=== PATIENT | female | born 1990 | race Caucasian/White ===

== ENCOUNTER → 2017-09-05 15:58 | Outpatient (CLI) | payer OTHER, SELFPAY ==
[2017-09-05 17:38] LABS: Hematocrit 31.8 % (37-47); Mean Corp Hgb Conc 34.6 g/gl (32-36); Mean Corpuscular Hgb 31.5 pg (27.0-32.0); Mean Corpuscular Volume 91.1 fL (81-99); Mean Platelet Vol. 10.4 fl (6.2-12.0); Platelet Count 200 K/mm3 (150-450); RBC Distribution Width CV 11.3 % (11.6-14.6); RBC Distribution Width SD 36.2 fl (35.1-43.9); Red Blood Count 3.49 M/mm3 (4.2-5.4); White Blood Count 8.1 K/mm3 (4.4-11.0)
[2017-09-05 17:39] LABS: Scan Indicated on CBC? Y/N NO
[2017-09-05 17:45] LABS: Glucose Challenge Gest 1H 50g 78 mg/dL (70-140)
== END ==
PROVIDERS: Visit Provider Obstetrics & Gynecology
DX: Z34.83 Encounter for supervision of other normal pregnancy, third trimester (principal)
CPT/HCPCS: 82950; 85027; 86850

== ENCOUNTER → 2017-10-31 13:30 | Outpatient (CLI) | payer OTHER, SELFPAY ==
[2017-10-31 15:23] LABS: Group B Strep DNA By PCR Negative (Negative); Internal Control PASS; Probe Check PASS; Specimen Processing Control PASS
== END ==
PROVIDERS: Visit Provider Obstetrics & Gynecology
DX: Z36.85 Encounter for antenatal screening for Streptococcus B (principal)
CPT/HCPCS: 87081; 87653

== ENCOUNTER 2017-11-26 01:20 | Inpatient (IN) | payer OTHER, SELFPAY ==
[2017-11-26 01:53] VITALS: BMI 24.1
[2017-11-26] MEDS: Lactated Ringers 1,000 ML 50 ML IV ×3 (02:00→05:18)
[2017-11-26 02:14] LABS: Hematocrit 36.6 % (37-47); Hemoglobin 12.1 g/dl (12.0-15.0); Mean Corp Hgb Conc 33.1 g/gl (32-36); Mean Corpuscular Hgb 27.4 pg (27.0-32.0); Mean Platelet Vol. 10.5 fl (6.2-12.0); Platelet Count 243 K/mm3 (150-450); RBC Distribution Width CV 13.6 % (11.6-14.6); Red Blood Count 4.41 M/mm3 (4.2-5.4); Scan Indicated on CBC? Y/N NO; White Blood Count 12.9 K/mm3 (4.4-11.0)
[2017-11-26] MEDS: fentaNYL-bupivacaine (epidural) 100 ML BAG EPIDURAL ×2 (03:15→08:00)
--- NOTE | 2017-11-26 07:05 | PCM.PN.OB ---
Subjective: Comfortable with epidural in place. Objective: Afeb VSS FHR tracing Cat 1. - Physical Exam General: Alert, Oriented x3, Cooperative, No apparent distress Lungs: Clear to auscultation, Normal air movement Cardiovascular: Regular rate, Regular Rhythm Abdomen: Non Tender, Gravid, Appropriate for Gestational Age Extremities: No edema, No Calf Tenderness Skin: No rashes Psych/Mental Status: Normal Affect Comment: CE 8cm/90/0 Weight: 159 lb Body Mass Index (BMI) 24.1 Intake and Output for Last 24 Hours 11/24/17 11/25/17 11/26/17 23:59 23:59 23:59 Output Total 200 / 200 Balance -200 / -200 Laboratory Tests Past 24 Hrs 11/26/17 11/26/17 11/26/17 02:00 02:00 02:00 WBC 12.9 H RBC 4.41 Hgb 12.1 Hct 36.6 L MCV 83.0 MCH 27.4 MCHC 33.1 RDW 13.6 RDW Differential 41.0 Plt Count 243 MPV 10.5 Blood Type B NEGATIVE Antibody Screen TNP NEGATIVE Medical Necessity - Tobacco Use Smoking Status: Never smoker Assessment/Plan All Active Problems (Last Reviewed 04/20/17 @ 15:53 by Lulu Onofre) UTI (urinary tract infection) in in first trimester (Acute) Need for rhogam due to Rh negative mother (Acute) Supervision of normal (Acute) Progressing in labor. AROM performed with clear fluid noted. IUPC placed. Expect to be pushing soon.
[2017-11-26] MEDS: Oxytocin 30 units/NS 500 ml 30 UNITS/500 ML IV.SOLN 334 UNITS IV (08:41)
[2017-11-26] MEDS: Oxytocin 30 units/NS 500 ml 30 UNITS/500 ML IV.SOLN 167 UNITS IV (09:11)
--- NOTE | 2017-11-26 10:12 | PCM.OB.VAG ---
Vaginal Delivery Maternal Presentation: Active Labor 40w3d ega in active labor Amniotic Membrane Rupture Type: Artificial Rupture of Membrane time: 0650 Amniotic Fluid Description: Clear Final PIA: 11/23/17 Final PIA Source: US <20 weeks Gestational age: 40 Weeks and 3 Days Date of Procedure: 11/26/17 Pre-Operative Diagnosis: Labor Post-Operative Diagnosis: same Surgery/ Procedure Performed: Spontaneous Vaginal Delivery Anesthesiologist: Bowen Salas Type of Anesthesia: Epidural Description of Procedure: Progressed to FD from 4 cm over 6 hours. Pushed over the course of four contractions to deliver a live male without complication. There was a tight nuchal cord which was not able to be reduced prior to delivery but did not hamper delivery of the shoulders. Delayed cord clamping was employed. Cord bloods were collected. The placenta was delivered spontaeously intact with an excentrically located 3VC. Inspection revealed an intact cervix and upper vagina. A second degree posterior vaginal/perineal tear was repaired with 2-0 Vicryl. The uterus contracted well after delivery. Presentation: Vertex Placental Delivery Description: Spontaneous Placenta Disposition: [facility] Percentage of Placenta Abruption: 0 Cord Vessel Description: 3 Vessels Nuchal Cord Compression: With compression Cord Entanglement: Around neck x 1, tight Drain: Johnston to straight drain Estimated Blood Loss: 300cc Infant A gender: Male (1 minute): 9 (5 minute): 9 Episiotomy Description: None Laceration: Midline, Vaginal Extension/lac, 2nd degree Medications given after delivery: IV Pitocin Complications: None
--- NOTE | 2017-11-26 10:21 | DCINST_ITS ---
Discharge Diet: No Restrictions Discharge Activity: Return to Normal Activity, May Drive, May Shower Return to work on:: 01/25/18 May shower in (days): 0 May resume sexual activity in: 6 weeks Call your doctor if your incision/area has: Continuous Slow Oozing, Sudden Increased Bleeding, Increased Pain/ Swelling, Increased Redness, Foul Smelling Discharge, Swelling at the incision site Call your doctor if you observe: Fever of 101 or Higher, Inability to urinate, Inability to have a bowel movement, Using more than one pad per hour, Shortness of breath, Chest pain, Calf discomfort, Uncontrolled pain Cleanse incision/area with: Soap & Water Additional Instructions: If you experience any of the following, contact your healthcare provider. * Bleeding that soaks a pad every hour for 2 hours * Fever 100.4 or higher * Unrelieved incision or abdominal pain * Swelling, redness, discharge or bleeding from your incision or episiotomy site * Your incision begins to separate * Problems urinating (including inability to urinate or burning while urinating) . * Visual changes * Severe headache * Flu-like symptoms * Pain or redness in one of both of your breasts * Pain, warmth, tenderness or swelling in your legs, especially the calf area * Frequent nausea and vomiting * Symptoms of depression or anxiety If you experience any of the following, call 911 or go to the nearest Emergency Room. * Chest pain * Problems breathing * Seizure activity * Partial or complete paralysis of a body part, slurred speech, weakness or drooping of the face, or a sudden inability to walk or hold your balance Allergies/Adverse Reactions: Allergies No Known Allergies Allergy (Unverified 04/20/17 15:52) Medications to take at Discharge vitamin,calcium,ijvqmtoc-pwuw-rysnm acid tablet 1 tab PO QDAY 04/20/17 promethazine 12.5 mg tablet 12.5 mg PO Q6H PRN #60 tab 05/05/17 Ibuprofen 600 mg PO 4X/DAY #30 tab 11/26/17 The following prescriptions were given: Ibuprofen 600 mg PO 4X/DAY #30 tab Please Follow Up With: Christie Morales MD When: 6 weeks Primary Care Physician: Care Physician,No Primary [Primary Care Provider] - Test Results: Test results from this visit will be discussed in further detail at your follow- up appointment, if applicable. Proposed Discharge Date: 11/28/17
[2017-11-26] MEDS: 0.9% Saline Lock 10 ML Syringe IV (10:53)
[2017-11-26 11:30] VITALS: BP 113/74; PULSE 93; RESP 16; TEMP 36.6
[2017-11-26] MEDS: Ibuprofen 600 MG Tablet PO (14:57)
[2017-11-26 16:00] VITALS: BP 133/87; PULSE 93; RESP 18; TEMP 36.9
[2017-11-26] MEDS: Prenatal Vits Tablet 1 TABLET PO (16:48)
[2017-11-26 19:30] VITALS: BP 119/64; PULSE 80; RESP 20; TEMP 36.4
[2017-11-27] MEDS: Senna/Docusate Sodium 1 Tablet PO (00:59)
[2017-11-27] MEDS: Ibuprofen 600 MG Tablet PO ×4 (00:59→20:58)
[2017-11-27 01:04] VITALS: BP 139/87; PULSE 87; RESP 20; TEMP 36.8
[2017-11-27 04:10] VITALS: BP 111/72; PULSE 69; RESP 18; TEMP 36.6
[2017-11-27 06:36] LABS: Hematocrit 30.6 % (37-47); Hemoglobin 9.8 g/dl (12.0-15.0); Mean Corpuscular Hgb 26.8 pg (27.0-32.0); Mean Corpuscular Volume 83.6 fL (81-99); Mean Platelet Vol. 10.6 fl (6.2-12.0); Platelet Count 213 K/mm3 (150-450); RBC Distribution Width SD 42.7 fl (35.1-43.9); Red Blood Count 3.66 M/mm3 (4.2-5.4)
[2017-11-27 06:44] LABS: Scan Indicated on CBC? Y/N NO
[2017-11-27] MEDS: Prenatal Vits Tablet 1 TABLET PO (07:35)
[2017-11-27] MEDS: Dibucaine 30 GM Tube 1 APPLIC TOPICAL (07:36)
--- NOTE | 2017-11-27 07:42 | PCM.PN.OB ---
Subjective: Some vaginal soreness. Some cramping. Bleeding appropriate. Breast feeding. Objective: Afeb VSS Hgb appropriate PP day#1. - Physical Exam General: Alert, Oriented x3, Cooperative, No apparent distress Lungs: Clear to auscultation, Normal air movement Cardiovascular: Regular rate, Regular Rhythm Abdomen: Soft, Non Tender, Non-Distended, - - Fundus nontender Extremities: No edema Neurological: Neuro grossly intact Psych/Mental Status: Normal Affect Comment: Lochia appropriate Vital Signs Temp Pulse Resp BP 97.9 F 69 18 111/72 11/27/17 04:10 11/27/17 04:10 11/27/17 04:10 11/27/17 04:10 Weight: 159 lb Body Mass Index (BMI) 24.1 Intake and Output for Last 24 Hours 11/25/17 11/26/17 11/27/17 23:59 23:59 23:59 Intake Total 2738 / 2738 Output Total 2750 / 2750 Balance -12 / -12 Laboratory Tests Past 24 Hrs 11/27/17 06:05 WBC 13.0 H RBC 3.66 L Hgb 9.8 L Hct 30.6 L MCV 83.6 MCH 26.8 L MCHC 32.0 RDW 14.0 RDW Differential 42.7 Plt Count 213 MPV 10.6 Medical Necessity - Tobacco Use Smoking Status: Never smoker Assessment/Plan All Active Problems (Last Reviewed 04/20/17 @ 15:53 by Lulu Onofre) UTI (urinary tract infection) in in first trimester (Acute) Need for rhogam due to Rh negative mother (Acute) Supervision of normal (Acute) Doing well on PP day#1. Continue routine PP care.
[2017-11-27 08:00] VITALS: BP 112/68; PULSE 84; RESP 84; TEMP 36.8
[2017-11-27 14:00] VITALS: BP 109/73; PULSE 83; RESP 16; TEMP 36.7
[2017-11-27 20:40] VITALS: BP 117/71; PULSE 79; RESP 18; TEMP 36.6; O2SAT 100
[2017-11-28 02:48] VITALS: BP 104/66; PULSE 83; RESP 16; TEMP 36.6; O2SAT 98
[2017-11-28 08:33] VITALS: BP 109/75; PULSE 99; RESP 18; TEMP 36.8; O2SAT 99
--- NOTE | 2017-11-28 08:36 | PCM.PN.OB ---
Subjective: No specific complaints. Bleeding normal. Objective: Afeb VSS - Physical Exam General: Alert, Oriented x3, Cooperative, No apparent distress Lungs: Clear to auscultation, Normal air movement Cardiovascular: Regular rate, Regular Rhythm Abdomen: Soft, Non Tender, Non-Distended Extremities: No edema, No Calf Tenderness Skin: No rashes Neurological: Neuro grossly intact Psych/Mental Status: Normal Affect Comment: Lochia light Vital Signs Temp Pulse Resp BP Pulse Ox 97.9 F 83 16 104/66 98 11/28/17 02:48 11/28/17 02:48 11/28/17 02:48 11/28/17 02:48 11/28/17 02:48 Oxygen Delivery Method Room Air Weight: 159 lb Body Mass Index (BMI) 24.1 Intake and Output for Last 24 Hours 11/26/17 11/27/17 11/28/17 23:59 23:59 23:59 Intake Total 2738 / 2738 Output Total 2750 / 2750 Balance - / -12 Medical Necessity - Tobacco Use Smoking Status: Never smoker Assessment/Plan All Active Problems (Last Reviewed 04/20/17 @ 15:53 by Lulu Onofre) UTI (urinary tract infection) in in first trimester (Acute) Need for rhogam due to Rh negative mother (Acute) Supervision of normal (Acute) Doing well. Cleared for discharge home today.
--- NOTE | 2017-11-28 08:37 | PCM.DC.SUM ---
Discharge Date and Diagnosis Date of Admission: 11/26/17 Date of Discharge: 11/28/17 - Primary Discharge Diagnosis S/P Hospital Course and Treatment Operations: None Procedures: - - Summary of Care Provided: The patient is a 26 year old F [admitted in active labor. Had uncomplicated . Post course unremarkable. Discharged home on PP day#2.] Discharge Diet: No Restrictions Discharge Activity: Return to Normal Activity, May Drive, May Shower Return to work on:: 01/25/18 May shower in (days): 0 May resume sexual activity in: 6 weeks Call your doctor if your incision/area has: Continuous Slow Oozing, Sudden Increased Bleeding, Increased Pain/ Swelling, Increased Redness, Foul Smelling Discharge, Swelling at the incision site Call your doctor if you observe: Fever of 101 or Higher, Inability to urinate, Inability to have a bowel movement, Using more than one pad per hour, Shortness of breath, Chest pain, Calf discomfort, Uncontrolled pain Cleanse incision/area with: Soap & Water Home Medications: Medications to take at Discharge vitamin,calcium,dkxeqbfk-gphl-hxsjo acid tablet 1 tab PO QDAY 04/20/17 promethazine 12.5 mg tablet 12.5 mg PO Q6H PRN #60 tab 05/05/17 Ibuprofen 600 mg PO 4X/DAY #30 tab 11/26/17 Following Prescrptions Were Given to Patient: Ibuprofen 600 mg PO 4X/DAY #30 tab Primary Care Physician: Care Physician,No Primary [Primary Care Provider] - Please Follow Up With: Christie Morales MD When: 6 weeks Disposition: Home Minutes spent on discharge:: 15 Patient Condition:: Good Medical Necessity - Tobacco Use Smoking Status: Never smoker Meaningful Use Info Meaningful Use Diagnoses (Choose all that apply): None applicable
[2017-11-28] MEDS: Ibuprofen 600 MG Tablet PO (08:53)
[2017-11-28] MEDS: Senna/Docusate Sodium 1 Tablet PO (09:01)
[2017-11-28 11:40] VITALS: BP 110/76; PULSE 70; RESP 18; TEMP 36.6
--- NOTE | 2017-12-02 14:00 | NURSING ---
Follow up phone call completed, answered question for patient but otherwise reports to be doing well. Denies needs and states she was satisfied with her care
== END 2017-11-28 11:45 | disposition home or self-care (01) | DRG 775 ==
PROVIDERS: Admitting Provider Obstetrics & Gynecology; Visit Provider Obstetrics & Gynecology
DX: O70.1 Second degree perineal laceration during delivery (principal); O69.1XX0 Labor and delivery complicated by cord around neck, with compression, not applicable or unspecified; Z37.0 Single live birth; Z3A.40 40 weeks gestation of pregnancy
CPT/HCPCS: 59025; 59050; 85027; 86850; 86900; 99218; J7120; A4216; G0378

== ENCOUNTER → 2020-03-24 17:35 | Outpatient (CLI) | payer BC, SELFPAY | PROVIDERS: Referring Provider Obstetrics & Gynecology; Visit Provider Obstetrics & Gynecology | DX: Z03.818 Encounter for observation for suspected exposure to other biological agents ruled out (principal) | CPT/HCPCS: 87635; C9803; U0003 ==

== ENCOUNTER 2020-03-27 07:20 | Inpatient (IN) | payer BC, SELFPAY ==
[2020-03-27] VITALS (19 sets, daily range): BP systolic 95–142; BP diastolic 52–96; PULSE 65–121; RESP 14; TEMP 37.1–37.2; O2SAT 88–97; BMI 24.5
[2020-03-27] MEDS: Lactated Ringers 1,000 ML 50 ML IV (08:00)
[2020-03-27] MEDS: 0.9% Normal Saline Single 100 ML IV.SOLN. INTRA-UTER (08:00)
--- NOTE | 2020-03-27 08:20 | PCM.HP.OB ---
- Problem List (1) 40 weeks gestation of Status: Acute (2) Multiparous Status: Acute (3) Encounter for elective induction of labor Status: Acute History Date of Admission: 03/27/20 Final PIA: 03/23/20 Final PIA Source: US <20 weeks Gestational age: 40 Weeks and 4 Days History of this : This is a 29 year-old, G 3, P 1011, at 40 weeks 4 days gestational age admitted for an elective IOL. - Epidural PRN - GBS negative - Johnston placed. Will start pit gtt - EFW expected to be < 3500 g and pelvic adequate. Anticipate - Risks, benefits, alternatives to an elective IOL were discussed and pt requests an induction Allergies No Known Allergies Allergy (Unverified 04/20/17 15:52) Home Medications: Home Medications prenat.vits,vandana,mvo-jsxl-fqibg 1 tab PO QDAY 04/20/17 promethazine 12.5 mg tablet 12.5 mg PO Q6H PRN #60 tab 05/05/17 Ibuprofen 600 mg PO 4X/DAY #30 tab 11/26/17 Smoking Status: Never smoker History Past Pregnancies: Past Pregnancies Delivery Date Name GA/ Weeks Outcome Route Wt Infant Sex Labor Length Anesthesia Delivery Location Provider FOB Physical Exam Vitals: Vital Signs Pulse BP 91 122/78 H 03/27/20 07:33 03/27/20 07:33 Assessment/Plan All Active Problems (Last Reviewed 04/20/17 @ 15:53 by Lulu Onofre) 40 weeks gestation of (Acute) Multiparous (Acute) Encounter for elective induction of labor (Acute) UTI (urinary tract infection) in in first trimester (Acute) Need for rhogam due to Rh negative mother (Acute) Supervision of normal (Acute) This is a 29 year-old, G [], P [], at weeks gestational age.
[2020-03-27 08:21] LABS: Absolute Lymphocyte Count 2.06 X10^3/uL (0.83-4.51); Absolute Neutrophil Count 5.1 X10^3/uL (2.0-7.7); Basophil# 0.01 X10^3/uL; Basophil% 0.1 % (0-1); Eosinophils% 1.3 % (0-5); Hematocrit 37.4 % (37-47); Hemoglobin 12.4 g/dL (12.0-15.0); Lymphocyte # 2.06 X10^3/ul (4.0); Lymphocyte % 26.1 % (19-41); Mean Corp Hgb Conc 33.2 g/dL (32-36); Mean Corpuscular Hgb 29.4 pg (27.0-32.0); Mean Corpuscular Volume 88.6 fL (81-99); Mean Platelet Vol. 10.9 fl (6.2-12.0); Monocyte# 0.53 X10^3/uL; Monocyte% 6.7 % (0-10); NRBC Flagged by Analyzer 0 % (0-5); Neutrophil # 5.14 X10^3/uL (2.7-7.7); Platelet Count 187 K/mm3 (150-450); RBC Distribution Width CV 12.6 % (11.6-14.6); RBC Distribution Width SD 40.5 fl (35.1-43.9); Red Blood Count 4.22 M/mm3 (4.2-5.4); White Blood Count 7.9 K/mm3 (4.4-11.0)
[2020-03-27] MEDS: Oxytocin 30 units/NS 500 ml 30 UNITS/500 ML IV.SOLN IV (08:40)
[2020-03-27] MEDS: fentaNYL 100 MCG/2 ML Ampul IV (12:26)
[2020-03-27] MEDS: Lactated Ringers 500 ML 999 ML IV (12:40)
[2020-03-27] MEDS: Oxytocin 30 units/NS 500 ml 30 UNITS/500 ML IV.SOLN 334 UNITS IV (13:45)
[2020-03-27] MEDS: fentaNYL-bupivacaine (epidural) 100 ML BAG EPIDURAL (13:45)
--- NOTE | 2020-03-27 14:19 | OP.PCM_ITS ---
Problem List (1) 40 weeks gestation of Status: Acute (2) Multiparous Status: Acute (3) Encounter for elective induction of labor Status: Acute Report of Operation Date of Procedure: 03/27/20 Pre-Operative Diagnosis: 40 week gestation, elective induction Post-Operative Diagnosis: As above Surgery/Procedure Performed:: Description of Surgical Findings:: Vertex presentation. Clear fluid. Intact and normal appearing placenta with 3VC Type of Anesthesia:: Epidural Special Medications: None Specimen's removed: Placenta Drains: None Estimated Blood Loss (mL): 100 Description of Procedure: The pt was complete and pushing. Head of delivered in occiput anterior position over an intact perineum. Anterior shoulder, posterior shoulder, followed by body were delivered without any force or delay. Viable male infant was delivered atraumatically placed on maternal abdomen. The cord was clamped and cut after 60 sec delay by the father of the baby. With fundal massage the placenta was delivered and noted to be normal-appearing and intact with a three- vessel cord. The uterus was explored x1. Fundus was firm and hemostatic bleed ing was hemostatic. Perineum was intact. No lacerations noted. Instrument and sponge counts were correct. Vaginal sweep was performed. Grafts/Implants Used: None - Complications None - Admit VTE Documentation VTE Present on Admission: No VTE Pharm Prophylaxis ordered?: No Vaginal Delivery Maternal Presentation: Elective Induction Method of Induction: Pitocin, Johnston Bulb Amniotic Membrane Rupture Type: Artificial Amniotic Fluid Description: Clear Surgery/ Procedure Performed: Spontaneous Vaginal Delivery Type of Anesthesia: Epidural Presentation: Vertex Placental Delivery Description: Expressed Cord Vessel Description: 3 Vessels Cord Entanglement: None Infant A gender: Male (1 minute): 8 (5 minute): 9 Episiotomy Description: None Laceration: None Medications given after delivery: IV Pitocin Complications: None
[2020-03-27] MEDS: Acetaminophen 500 MG Tablet 1000 MG PO ×2 (15:05→23:00)
[2020-03-27] MEDS: Ibuprofen 600 MG Tablet PO (18:11)
[2020-03-28 00:22] VITALS: BP 95/52; PULSE 84; RESP 14; TEMP 36.9; O2SAT 97
[2020-03-28 03:15] VITALS: BP 95/55; PULSE 78; RESP 12; TEMP 36.8; O2SAT 97
[2020-03-28] MEDS: Ibuprofen 600 MG Tablet PO ×2 (05:03→12:02)
[2020-03-28 07:34] VITALS: BP 104/61; PULSE 71; RESP 16; TEMP 36.6
--- NOTE | 2020-03-28 08:17 | PN.OBGYN_ITS ---
Patient Problems: Active and Suspected Problems (Last Reviewed 04/20/17 @ 15:53 by Lulu Onofre) 40 weeks gestation of (Acute) Multiparous (Acute) Encounter for elective induction of labor (Acute) Subjective: Pt is doing well. Ambulating and voiding without difficulty. K[place]y regular diet without nausea or vomiting. Lochia normal. Breast-feeding without complaints. No chest pain, shortness of breath, leg pain. She feels ready to go home today. - Physical Exam Vitals/I&O's: Vital Signs Temp Pulse Resp BP Pulse Ox 97.9 F 71 16 104/61 97 03/28/20 07:34 03/28/20 07:34 03/28/20 07:34 03/28/20 07:34 03/28/20 03:15 Oxygen Delivery Method Room Air Weight: 161 lb Body Mass Index (BMI) 24.5 Intake and Output for Last 24 Hours 03/26/20 03/27/20 03/28/20 23:59 23:59 23:59 Intake Total 1293.33 / 1293.33 Output Total 1000 / 1000 Balance 293.33 / 293.33 General: Alert, No apparent distress HEENT: Atraumatic Abdomen: Soft, Non Tender Extremities: No edema Skin: No rashes Neurological: Neuro grossly intact Psych/Mental Status: Normal Affect, Appropriate Laboratory Results 03/27/20 08:00: WBC 7.9, RBC 4.22, Hgb 12.4, Hct 37.4, MCV 88.6, MCH 29.4, MCHC 33.2, RDW Std Deviation 40.5, RDW Coeff of Shanell 12.6, Plt Count 187, MPV 10.9, Immature Gran % (Auto) 0.800, Neut % (Auto) 65.0, Lymph % (Auto) 26.1, [place] % (Auto) 6.7, Eos % (Auto) 1.3, Baso % (Auto) 0.1, Absolute Neuts (auto) 5.1, Absolute Lymphs (auto) 2.06, Nucleated RBC % 0 03/27/20 08:00: Blood Type B NEGATIVE, Antibody Screen TNP 03/27/20 08:00: Antibody Screen NEGATIVE Current Medications Acetaminophen (Acetaminophen 500 Mg Tablet) 1,000 mg PO Q8H PRN PRN PRN Reason: Pain Score 1-3 Last Admin: 11/27/20 23:00 Dose: 1,000 mg Documented by: Bisacodyl (Bisacodyl 10 Mg Suppository) 10 mg RECTAL UD PRN PRN Reason: If no BM Dibucaine (Dibucaine 30 Gm Tube) 1 applic TOPICAL TID PRN PRN; Protocol PRN Reason: Discomfort Hydrocortisone (Hydrocortisone 2.5% Crm) 1 applic TOPICAL TID PRN PRN; Protocol PRN Reason: Discomfort Ibuprofen (Ibuprofen 600 Mg Tablet) 600 mg PO Q6H PRN PRN PRN Reason: Pain Score 1-3 Last Admin: 03/28/20 05:03 Dose: 600 mg Documented by: Methylergonovine Maleate (Methylergonovine 0.2 Mg/Ml Ampul) 0.2 mg IM X1 PRN PRN Reason: Excess bleeding/uterine atony Ondansetron HCl (Ondansetron 4 Mg/2 Ml Vial) 4 mg IV Q4H PRN PRN PRN Reason: Nausea Senna/Docusate Sodium (Senna/Docusate Sodium 1 Tablet) 1 - 2 tablet PO DAILY PRN PRN PRN Reason: Constipation Simethicone (Simethicone 80 Mg Tablet) 80 mg PO PCHS PRN PRN Reason: Indigestion/Stomach pain Sodium Chloride (0.9% Saline Lock 10 Ml Syringe) 5 - 15 ml IV UD PRN PRN Reason: SALINE FLUSH Medical Necessity - Tobacco Use Smoking Status: Never smoker Assessment/Plan All Active Problems (Last Reviewed 04/20/17 @ 15:53 by Lulu Onofre) 40 weeks gestation of (Acute) Multiparous (Acute) Encounter for elective induction of labor (Acute) UTI (urinary tract infection) in in first trimester (Acute) Need for rhogam due to Rh negative mother (Acute) Supervision of normal (Acute) day 1 from a spontaneous vaginal delivery. She feels ready to go home. Meeting all milestones for discharge. Vital signs are stable. Discharge instructions reviewed.
--- NOTE | 2020-03-28 08:19 | DCINST_ITS ---
Discharge Diet: No Restrictions Discharge Activity: May Shower, May Take a Tub Bath May resume sexual activity in: 6 weeks Ice area for (Minutes): 15 Weight Bearing Status: Weight bearing as tolerated Call your doctor if you observe: Fever of 101 or Higher, Change in Color, Inability to urinate, Inability to have a bowel movement, Using more than one pad per hour, Shortness of breath, Dizziness, Fainting spells, Swelling in the ankles, Chest pain, Increased palpitations (irregular heartbeat), Calf discomfort, Uncontrolled pain Additional Instructions: If you experience any of the following, contact your healthcare provider. * Bleeding that soaks a pad every hour for 2 hours * Fever 100.4 or higher * Unrelieved incision or abdominal pain * Swelling, redness, discharge or bleeding from your incision or episiotomy site * Your incision begins to separate * Problems urinating (including inability to urinate or burning while urinating). * Visual changes * Severe headache * Flu-like symptoms * Pain or redness in one of both of your breasts * Pain, warmth, tenderness or swelling in your legs, especially the calf area * Frequent nausea and vomiting * Symptoms of depression or anxiety If you experience any of the following, call 911 or go to the nearest Emergency Room. * Chest pain * Problems breathing * Seizure activity * Partial or complete paralysis of a body part, slurred speech, weakness or drooping of the face, or a sudden inability to walk or hold your balance Allergies/Adverse Reactions: Allergies No Known Allergies Allergy (Unverified 04/20/17 15:52) Medications to take at Discharge prenat.vits,vandana,dvb-nslz-artva 1 tab PO QDAY 04/20/17 promethazine 12.5 mg tablet 12.5 mg PO Q6H PRN #60 tab 05/05/17 Ibuprofen 600 mg PO 4X/DAY #30 tab 11/26/17 When: 1-2 week virtual. 6 week Primary Care Physician: Care Physician,No Primary [Primary Care Provider] - Test Results: Test results from this visit will be discussed in further detail at your follow- up appointment, if applicable.
[2020-03-28 12:03] VITALS: BP 111/64; PULSE 75; RESP 16; TEMP 36.8
--- NOTE | 2020-04-01 16:37 | NURSING ---
Mother doing well. Baby nursing well and lots of voids and stools at follow up phone call.
== END 2020-03-28 15:30 | disposition home or self-care (01) | DRG 807 ==
PROVIDERS: Admitting Provider Obstetrics & Gynecology; Visit Provider Obstetrics & Gynecology
DX: O75.9 Complication of labor and delivery, unspecified (principal); Z37.0 Single live birth; Z3A.40 40 weeks gestation of pregnancy
CPT/HCPCS: 59025; 59050; 85025; 86850; 86900; 86901; 99218; J7120; G0378

== ENCOUNTER 2023-05-18 09:03 | Emergency (ER) | payer OTHER, SELFPAY ==
[2023-05-18 09:06] VITALS: BP 129/88; PULSE 92; RESP 18; TEMP 36.6; O2SAT 100; BMI 25.1
--- NOTE | 2023-05-18 09:13 | EX.ED.DYSGE1 ---
HPI History of Present Illness Chief Complaint: Chest Other Informant: patient Onset/Context/Timing Onset: Today Context: Sudden Onset Timing: Intermittent and Lasts (Approximately 1 minute) Quality: Lightheaded, syncope Location: Generalized Worsened by: Nothing Relieved by: Nothing Narrative Narrative: Patient presents with a syncopal episode that occurred today. Patient is approximately 32 weeks . Patient states she was sitting in a meeting when she passed out. Patient states she felt hot and lightheaded. Patient thinks she was only out for approximately 1 minute. EMS checked a fingerstick blood sugar and it was 161. Patient admits to some nausea but denies any vomiting. Patient denies any palpitations, chest pain, or shortness of breath. Patient denies any recent fevers or chills. Patient denies any vaginal bleeding or discharge. Patient denies any leakage of fluids. PFSH PFSH Medical History no medical history no medical history Home Medications prenat.vits,vandana,[id number] ( Vitamin tablet) 1 tab PO QDAY 04/20/17 [History Last Taken 03/26/20] promethazine 12.5 mg tablet 12.5 mg PO Q6H PRN nausea and vomiting #60 tabs 05/05/17 [Rx Last Taken Unknown] ibuprofen 600 mg tablet 600 mg PO 4X/DAY pain or cramping #30 tabs 11/26/17 [Rx Last Taken Unknown] Allergy/AdvReac Type Severity Reaction Status Date / Time No Known Allergies Allergy Verified 05/18/23 09:05 Family History (Updated 04/20/17 @ 15:54 by Lulu Onofre) Grandfather Diabetes Colon cancer Mother Thyroid disorder Surgical History no surgical history no surgical history Social History Smoking Status: Never smoker alcohol intake: never substance use type: does not use caffeine: No what type of physical activity do you participate in: none seatbelt use: always do you feel safe at home: Yes 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 ROS ROS ED Constitutional Constitutional ED: Denies chills or fever(s) Eyes Eyes: Denies blurry vision or change in vision ENT ENT ED: Denies rhinorrhea or sore throat Cardiovascular Cardiovascular: Denies chest pain or palpitations Respiratory/Chest Respiratory/Chest: Denies cough or dyspnea Gastrointestinal Gastrointestinal: Reports nausea; Denies vomiting Genitourinary Genitourinary ED: Denies dysuria or hematuria Musculoskeletal Musculoskeletal: Denies back pain or neck pain Integumentary Denies abscess or rash Neurologic Neurologic: Denies headache(s) or weakness Allergic/Immunologic Allergic/Immunologic ED: Denies mouth swelling or urticaria EXAM Physical Exam Const Vital Signs: 05/18/23 09:06 05/18/23 09:12 05/18/23 09:40 Temperature 97.8 F Temperature Source Temporal Pulse Rate 92 Pulse Rate [Lying] 85 Pulse Rate [Sitting (for 1 minute prior to obtaining)] 82 Pulse Rate [Standing (for 1 minute prior to obtaining)] 96 Respiratory Rate 18 Respiratory Pattern Normal Blood Pressure 129/88 H Blood Pressure [Lying] 117/68 Blood Pressure [Sitting (for 1 minute prior to obtaining)] 111/68 Blood Pressure [Standing (for 1 minute prior to obtaining)] 109/71 Blood Pressure Mean 101 Blood Pressure Mean [Lying] 84 Blood Pressure Mean [Sitting (for 1 minute prior to obtaining)] 82 Blood Pressure Mean [Standing (for 1 minute prior to obtaining)] 83 Pulse Ox 100 Oxygen Delivery Method Room Air 05/18/23 11:25 Temperature Temperature Source Pulse Rate 76 Pulse Rate [Lying] Pulse Rate [Sitting (for 1 minute prior to obtaining)] Pulse Rate [Standing (for 1 minute prior to obtaining)] Respiratory Rate 16 Respiratory Pattern Blood Pressure 114/71 Blood Pressure [Lying] Blood Pressure [Sitting (for 1 minute prior to obtaining)] Blood Pressure [Standing (for 1 minute prior to obtaining)] Blood Pressure Mean 85 Blood Pressure Mean [Lying] Blood Pressure Mean [Sitting (for 1 minute prior to obtaining)] Blood Pressure Mean [Standing (for 1 minute prior to obtaining)] Pulse Ox 100 Oxygen Delivery Method Positive well nourished and well developed General Appearance ED: well developed and NAD HEENT Reports moist mucous membranes Neck supple and no JVD Resp normal respiratory effort and clear to auscultation bilaterally Cardio regular rate and regular rhythm GI non-tender and non-distended Palpation: soft Extremity normal to inspection General Extremety ED: Negative for edema or tenderness General Extremity: Negative for edema Neuro oriented x3, CN's II-XII intact bilaterally and no sensory deficits noted Sensorium / Orientation: alert Motor Exam: strength 5/5 throughout Psych mental status grossly normal MDM MDM MDM Narrative Medical decision making narrative: Differential diagnosis includes cardiac dysrhythmia, cardiac ischemia, dehydration, electrolyte abnormality, urinary tract infection, miscarriage, and vasovagal syncope. EKG will be obtained to assess for cardiac dysrhythmia and cardiac ischemia. CBC will be obtained to assess for leukocytosis and anemia. Basic metabolic profile will be obtained to assess for electrolyte abnormality and renal function. Urinalysis will be obtained to assess for urinary tract infection and hematuria. heart tones will be obtained to assess for viability. Lab Data Attestation: I reviewed the patient's lab results. Lab results narrative: CBC was reviewed. There is moderate anemia with a hemoglobin of 8.9 and hematocrit 27.7. Basic metabolic profile was reviewed and was within normal limits. Urinalysis was reviewed. There is no evidence of urinary tract infection or hematuria. Labs: Laboratory Results - last 24 hr 05/18/23 05/18/23 09:35 10:26 WBC 7.0 RBC 3.27 L Hgb 8.9 L Hct 27.7 L MCV 84.7 MCH 27.2 MCHC 32.1 RDW Std Deviation 38.5 RDW Coeff of Shanell 12.7 Plt Count 197 MPV 10.0 Immature Gran % (Auto) 0.900 Neut % (Auto) 65.2 Lymph % (Auto) 23.7 [place] % (Auto) 7.9 Eos % (Auto) 2.0 Baso % (Auto) 0.3 Absolute Neuts (auto) 4.6 Absolute Lymphs (auto) 1.66 Nucleated RBC % 0 Sodium 136 Potassium 3.4 L Chloride 106 Carbon Dioxide 24.0 Anion Gap 6 BUN 9 Creatinine 0.51 L Estim Creat Clear Calc 162.71 Est GFR (MDRD) Af Amer 182 Est GFR (MDRD) Non-Af 150 BUN/Creatinine Ratio 17.7 Glucose 89 Calcium 8.5 Urine Color Yellow Urine Clarity Clear Urine pH 7.0 Ur Specific [place] 1.010 Urine Protein Negative Urine Glucose (UA) Normal Urine Ketones Negative Urine Occult Blood Negative Urine Nitrite Negative Urine Bilirubin Negative Urine Urobilinogen Normal Ur Leukocyte Esterase 25 H Urine RBC 0 SEEN Urine WBC 0-5 SEEN Ur Squamous Epith Cells 0 SEEN Urine Bacteria 1+ Urine Mucus 0 SEEN EKG Initial EKG: Attestation: I personally reviewed and interpreted this EKG as follows: Interpretation: Sinus Rhythm (85) and No Acute Injury Pattern Comments: EKG was obtained. On my independent interpretation, it showed a normal sinus rhythm with a rate of 85. NH interval, QRS interval, and QTc intervals were all normal. [place] was normal. There are no acute ST or T wave changes. Prior EKG tracings: not available for review Prior: No Prior Treatment and Re-Evaluation :: Orthostatic vital signs were obtained and were negative. Patient was given IV fluids. heart tones were obtained and were 142. Patient is feeling better on reevaluation. Patient was advised of her findings. Patient states she just recently started taking her iron supplements in addition to her vitamins. Patient was instructed to continue with this. Patient was instructed to follow-up with her MANAGER CORE as scheduled. Patient was also instructed to follow-up with her primary care physician in 5 to 7 days. Patient understood and was agreeable with the plan. All questions were answered. Discharge Plan Triage Chief Complaint: Chest Other ED Provider: Luciano Dewey Dx/Rx/DC Orders Clinical Impression: Anemia, , Syncope and collapse Instructions: ED Fainting, Uncertain Cause Prescriptions: No Action prenat.vits,vandana,[id number] [ Vitamin] tablet 1 tab PO QDAY promethazine 12.5 mg tablet 12.5 mg tablet 12.5 mg PO Q6H PRN (Reason: nausea and vomiting) Qty: 60 4RF Patient Comments: pt used this in early not currently using ibuprofen 600 MG tablet 600 mg PO 4X/DAY Qty: 30 1RF Primary Care Provider: Care Physician,No Primary Referrals: Ross Hager DO [Non-Staff] - 5-7 Days Joceline Deluna MD [Med Staff - Active Staff] - Keep [place] appointment Care Physician,No Primary [Primary Care Provider] - Disposition Disposition: Home, Self Care Discharge Date/Time: 05/18/23 11:46 Capacity [employer] Repairer Reflex Medical hold order details:: IF a medical hold is selected below, a suggested order for a MEDICAL HOLD will reflex upon signing the document. Next of kin: [place] law dictates a PRIORITY LIST for identifying legal decision-maker/legal next of kin in the following order (LNOK): 1st: The patient?s legal guardian, if any 2nd: The patient's spouse (if status is questionable, consult Risk Management) 3rd: The patient?s adult child(subhash) (majority, if multiple children) 4th: The patient?s parents 5th: The patient?s adult siblings (majority, if multiple children siblings)
[2023-05-18 09:40] VITALS: BP 109/71; BP 111/68; BP 117/68; PULSE 82; PULSE 85; PULSE 96
[2023-05-18] MEDS: 0.9% Normal Saline (1000mL) 1,000 ML 1000 ML IV (09:40)
[2023-05-18 09:42] LABS: Absolute Lymphocyte Count 1.66 X10^3/uL (0.83-4.51); Absolute Neutrophil Count 4.6 X10^3/uL (2.0-7.7); Basophil# 0.02 X10^3/uL; Basophil% 0.3 % (0-1); Eosinophil# 0.14 X10^3/uL; Hematocrit 27.7 % (37-47); Hemoglobin 8.9 g/dL (12.0-15.0); Lymphocyte # 1.66 X10^3/ul (0.83-4.51); Lymphocyte % 23.7 % (19-41); Mean Corp Hgb Conc 32.1 g/dL (32-36); Mean Corpuscular Hgb 27.2 pg (27.0-32.0); Mean Corpuscular Volume 84.7 fL (81-99); Monocyte# 0.55 X10^3/uL; Monocyte% 7.9 % (0-10); NRBC Flagged by Analyzer 0 % (0-5); Neutrophil # 4.56 X10^3/uL (2.7-7.7); Neutrophil % 65.2 % (47-70); Platelet Count 197 K/mm3 (150-450); RBC Distribution Width CV 12.7 % (11.6-14.6); RBC Distribution Width SD 38.5 fl (35.1-43.9); Red Blood Count 3.27 M/mm3 (4.2-5.4)
[2023-05-18 09:54] LABS: Anion Gap 6 (5-15); BUN 9 mg/dL (7-18); BUN/Creat Ratio 17.7 RATIO (10-20); Calcium,Total 8.5 mg/dL (8.5-10.1); Chloride 106 mmol/L (98-107); Creatinine, Serum 0.51 mg/dL (0.55-1.02); EST Glomerular Filtration Rate 150 mL/min (>60); Est Glom Filt Rate - Afr Amer 182 mL/min (>60); Estimated Creatinine Clearance 162.71 ml/min; Glucose 89 mg/dL (74-106); Potassium 3.4 mmol/L (3.5-5.1); Sodium Level 136 mmol/L (136-145)
[2023-05-18 10:32] LABS: Mucous, Urine 0 SEEN /hpf (<or=2+); Red Blood Cells-Urine 0 SEEN /hpf (0-5); Squamous Epithelial Cells - UA 0 SEEN /hpf (5-10)
--- NOTE | 2023-05-18 10:39 | ED.RN ---
NO OLD EKG
[2023-05-18 10:45] LABS: Color, Urine Yellow (Yellow); Glucose, Dipstick Normal (Normal); Ketone-Dipstick Negative (Negative); Leukocyte Esterase-Dipstick 25 /ul (Negative); Nitrite-Dipstick Negative (Negative); Occult Blood-Urine Negative /ul (Negative); Protein-Dipstick Negative (Negative); Urine Bilirubin Dipstick Negative (Negative); Urine Clarity Clear (Clear); Urine Urobilinogen Normal (Normal)
[2023-05-18 11:19] LABS: Bacteria 1+ /hpf (None Seen); White Blood Cells 0-5 SEEN /hpf (0-5)
[2023-05-18 11:25] VITALS: BP 114/71; PULSE 76; RESP 16; O2SAT 100
== END 2023-05-18 11:46 | disposition home or self-care (01) ==
PROVIDERS: Emergency Provider Emergency Medicine; Visit Provider Emergency Medicine
DX: O99.013 Anemia complicating pregnancy, third trimester (principal); R55 Syncope and collapse; Z3A.32 32 weeks gestation of pregnancy
CPT/HCPCS: 80048; 81001; 85025; 93005; 96360; 96361; 99285; J7030; A4216

== ENCOUNTER 2023-07-18 00:42 | Inpatient (IN) | payer OTHER, SELFPAY ==
[2023-07-18] VITALS (53 sets, daily range): BP systolic 101–164; BP diastolic 61–86; PULSE 60–97; RESP 16; TEMP 36.6–37.2; O2SAT 91–100; BMI 26.9
--- NOTE | 2023-07-18 00:47 | HP.PCM.OB_ITS ---
HPI - General General Date of Admission: 07/18/23 HPI Narrative PHOENIX IBARRA, is a 32 F who presents in active labor. with PIA:07/14/23 Maternal Data Information PIA Calculator Estimated Delivery Date Method Current WG Current Estimate 07/14/23 Manual 40w 4d PFSH PFSH Medical History (Updated 07/18/23 @ 01:13 by Halie Sands) Superficial varicosities Home Medications prenat.vits,vandana,[id number] ( Vitamin tablet) 1 tab PO QDAY 04/20/17 [History Last Taken 03/26/20] promethazine 12.5 mg tablet 12.5 mg PO Q6H PRN nausea and vomiting #60 tabs 05/05/17 [Rx Last Taken Unknown] ibuprofen 600 mg tablet 600 mg PO 4X/DAY pain or cramping #30 tabs 11/26/17 [Rx Last Taken Unknown] Allergy/AdvReac Type Severity Reaction Status Date / Time No Known Allergies Allergy Verified 07/18/23 01:05 Family History (Updated 04/20/17 @ 15:54 by Lulu Onofre) Grandfather Diabetes Colon cancer Mother Thyroid disorder Social History Smoking Status: Never smoker alcohol intake: never substance use type: does not use caffeine: No what type of physical activity do you participate in: none seatbelt use: always do you feel safe at home: Yes 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 Date Name GA/Weeks Outcome Route Bth Weight Infant Gen Labor Lgth Anesthesia Del Locatn Provider FOB 11/26/17 40 live - full term [facility] Delivery Date: 11/26/17 Last Updated by: Christie Neely 2 degree lac NST FHR Rate Baby A Baseline: 140 Variability:: Moderate Accelerations:: 15 x 15 Decelerations:: None FHR Category:: Category I Uterine Activity:: every 2-3 minutes, strong ROS Constitutional Constitutional: Reports systems reviewed and no addt'l complaints, except as documented; Denies headache(s) Eyes Eyes: Denies acute decrease in peripheral vision, blurry vision or change in vision ENT HEENT: Reports systems reviewed and no addt'l complaints, except as documented Cardiovascular Cardiovascular: Denies chest pain or dizziness Respiratory/Chest Respiratory/Chest: Denies cough, dyspnea, dyspnea on exertion, shortness of breath at rest or shortness of breath with exertion Gastrointestinal Gastrointestinal: Denies abdominal pain, diarrhea, nausea or vomiting Musculoskeletal Musculoskeletal: Denies limited range of motion Integumentary Integumentary: Reports systems reviewed and no addt'l complaints, except as documented Neurologic Neurologic: Reports systems reviewed and no addt'l complaints, except as documented Psychiatric Psychiatric: Reports systems reviewed and no addt'l complaints, except as documented Endocrine Endocrinology: Reports systems reviewed and no addt'l complaints, except as documented Hematologic/Lymphatic Hematologic/Lymphatic: Reports systems reviewed and no addt'l complaints, except as documented Allergic/Immunologic Allergic/Immunologic: Reports systems reviewed and no addt'l complaints, except as documented Vital Signs Vital Signs Vital Signs: 07/18/23 00:35 07/18/23 00:35 07/18/23 00:35 Temperature Temperature Source Pulse Rate 80 Respiratory Rate Blood Pressure 137/79 H BP Systolic 137 BP Diastolic 79 Pulse Ox 100 07/18/23 00:35 07/18/23 00:35 07/18/23 00:35 Temperature 98.0 F Temperature Source Oral Pulse Rate Respiratory Rate 16 Blood Pressure BP Systolic BP Diastolic Pulse Ox Physical Exam Const alert and oriented x3 General Appearance: cooperative Orientation / Consciousness: awake, oriented to person, oriented to place and oriented to time Exam Limitations: no limitations HEENT normocephalic Head and Scalp: normal to inspection, normocephalic and atraumatic Face and Sinus: normal facial exam Eyes General Eye: normal appearance of both eyes Neck full ROM Chest Chest: symmetrical chest wall rise Resp normal respiratory effort and normal air movement Auscultation: clear to auscultation bilaterally Cardio regular rate, regular rhythm, S1 normal heart sound, S2 normal heart sound, no murmurs, no rub, no gallops and no clicks GI normal to inspection, nondistended, normoactive bowel sounds and non-tender appearance of the vagina normal Bladder / Kidney Exam: no CVA tenderness Manual OB Exam: estimated gestational size appropriate, presentation cephalic, dilated 6cm, effaced 70 and station -1 Back/Spine normal ROM Extremity normal to inspection and full ROM Skin no rashes or lesions noted Neuro oriented x3 and moves all extremities Sensorium / Orientation: awake, alert and oriented to person Motor Exam: clonus absent Deep Tendon Reflexes: Rt Patellar (L4): 2+ and Lt Patellar (L4): 2+ Labs Labs Labs: Blood Type B NEGATIVE Antibody Screen POSITIVE Hct 32.4 % (37-47) L Hgb 10.0 g/dL (12.0-15.0) L Syphilis Total Ab Non-reactive Rubella IgG Antibody 37.3 IU/mL Hep Bs Antigen Negative (Negative) Glucose 1 Hr 50 gm 78 mg/dL (70-140) Group B Strep DNA Negative (Negative) Rhogam given: No Miscellaneous Test Assessment & Plan (1) Active labor at term: (2) Anemia affecting : (3) Rh negative status during : PLAN: Plan 1) Admit to labor and delivery 2) Routine labs 3) GBS negative 4) Continuos EFM 5) Planning epidural for pain management 6) collaborative physician, notified of patient status and of above assessment and plan
[2023-07-18] MEDS: Lactated Ringers 1,000 ML 200 ML IV (00:50)
[2023-07-18] MEDS: LACTATED RINGERS 500 ML 999 ML IV (01:00)
[2023-07-18 01:10] LABS: Absolute Lymphocyte Count 2.39 X10^3/uL (0.83-4.51); Absolute Neutrophil Count 6.2 X10^3/uL (2.0-7.7); Basophil# 0.03 X10^3/uL; Basophil% 0.3 % (0-1); Eosinophil# 0.13 X10^3/uL; Eosinophils% 1.4 % (0-5); Hematocrit 32.4 % (37-47); Lymphocyte # 2.39 X10^3/ul (0.83-4.51); Lymphocyte % 25.1 % (19-41); Mean Corp Hgb Conc 30.9 g/dL (32-36); Mean Corpuscular Hgb 24.4 pg (27.0-32.0); Mean Corpuscular Volume 79.2 fL (81-99); Mean Platelet Vol. 11.3 fl (6.2-12.0); Monocyte# 0.71 X10^3/uL; Monocyte% 7.5 % (0-10); NRBC Flagged by Analyzer 0 % (0-5); Neutrophil # 6.21 X10^3/uL (2.7-7.7); Neutrophil % 65.1 % (47-70); Platelet Count 221 K/mm3 (150-450); RBC Distribution Width CV 16.4 % (11.6-14.6); RBC Distribution Width SD 46.7 fl (35.1-43.9); Red Blood Count 4.09 M/mm3 (4.2-5.4); White Blood Count 9.5 K/mm3 (4.4-11.0)
[2023-07-18 01:47] LABS: Syphilis Antibodies Non-reactive
[2023-07-18] MEDS: fentaNYL-bupivacaine (epidural) 100 ML BAG EPIDURAL (01:49)
[2023-07-18] MEDS: Oxytocin 10 UNITS/ML Vial IM (02:45)
[2023-07-18] MEDS: Oxytocin 15 Units/NS 250ml 15 UNITS/250 ML IV.SOLN 83 UNITS IV (02:45)
--- NOTE | 2023-07-18 02:56 | EX.PCM.OBRPT ---
Assessment & Plan (1) Vaginal delivery: (2) Lactating mother: Maternal Data Information PIA Calculator Estimated Delivery Date Method Current WG Current Estimate 07/14/23 Manual 40w 4d Vaginal Delivery Maternal Presentation Maternal Presentation: Active Labor Operative Information Date of Procedure: 07/18/23 Pre-Operative Diagnosis: Active labor at term Post-Operative Diagnosis: Surgery / Procedure Performed: Spontaneous Vaginal Delivery Type of Anesthesia: Epidural Estimated Blood Loss: 400ml Time of Delivery: 02:43 Findings Description of Procedure: Progressed to complete with urge to push. Epidural for pain management. of viable female infant over intact perineum. APGARS 8,9 respectively. Infant head delivered with body immediately forthcoming. Placed on maternal abdomen, strong cry. Mouth and nares wiped for secretions. Pitocin started for active 3rd stage management. Cord doubly clamped and cut by FOB after pulsations ceased, delayed cord clamping. Placenta delivered intact via jones, 3 vessel cord intact. Perineum inspected and revealed intact. Fundus firm and hemostasis achieved. EBL 400ml. Mom and baby stable, planning to breastfeed. Family bonding well. notified of delivery. Presentation: Vertex and VANDANA Amniotic Membrane Rupture Type: Artificial Amniotic Fluid Description: Clear Placental Delivery Description: Expressed Placenta Disposition: [facility] Cord Vessel Description: 3 Vessels Cord Entanglement: None Infant A Gender: Female (1 minute): 8 (5 minute): 9 Delayed Cord Clamping: Yes Post Vaginal Delivery Medications Given After Delivery: IV Pitocin and IM Pitocin Episiotomy Description: None Laceration: None Complication Complications: None
[2023-07-18] MEDS: Methylergonovine 0.2 MG/ML Ampul IM (03:31)
[2023-07-18] MEDS: Ibuprofen 600 MG Tablet PO (16:36)
[2023-07-19 01:30] VITALS: BP 113/62; PULSE 72; RESP 16; TEMP 36.9; O2SAT 98
[2023-07-19 05:32] LABS: Absolute Lymphocyte Count 2.93 X10^3/uL (0.83-4.51); Absolute Neutrophil Count 4.2 X10^3/uL (2.0-7.7); Basophil# 0.03 X10^3/uL; Basophil% 0.4 % (0-1); Eosinophil# 0.12 X10^3/uL; Eosinophils% 1.5 % (0-5); Hematocrit 25.7 % (37-47); Lymphocyte # 2.93 X10^3/ul (0.83-4.51); Lymphocyte % 37.6 % (19-41); Mean Corp Hgb Conc 31.1 g/dL (32-36); Mean Corpuscular Hgb 25.1 pg (27.0-32.0); Mean Corpuscular Volume 80.6 fL (81-99); Mean Platelet Vol. 10.9 fl (6.2-12.0); Monocyte# 0.52 X10^3/uL; Monocyte% 6.7 % (0-10); NRBC Flagged by Analyzer 0 % (0-5); Neutrophil # 4.15 X10^3/uL (2.7-7.7); Neutrophil % 53.3 % (47-70); Platelet Count 183 K/mm3 (150-450); RBC Distribution Width CV 16.8 % (11.6-14.6); RBC Distribution Width SD 48.2 fl (35.1-43.9); Red Blood Count 3.19 M/mm3 (4.2-5.4); White Blood Count 7.8 K/mm3 (4.4-11.0)
[2023-07-19] MEDS: Ibuprofen 600 MG Tablet PO (06:46)
[2023-07-19 08:20] VITALS: BP 105/69; PULSE 66; RESP 18; TEMP 36.7; O2SAT 98
--- NOTE | 2023-07-19 10:43 | PCM.PN.OB ---
Subjective Subjective Doing well per patient and nursing staff. Ambulating and taking PO without difficulty. Voiding and passing flatus. Pain controlled. , services for assistance. Denies headache, visual changes, chest pain, shortness of breath, leg pain or increased bleeding. Lochia normal. Objective Data Objective Data Vital Signs: Vital Signs Temp Pulse Resp BP Pulse Ox O2 Del Method 98.0 F 66 18 105/69 98 Room Air 07/19/23 08:20 07/19/23 08:20 07/19/23 08:20 07/19/23 08:20 07/19/23 08:20 07/19/23 08:20 Oxygen Delivery Method Room Air Weight: 177 lb 0.499 oz Body Mass Index (BMI) 26.9 Intake & Output: Intake and Output for Last 24 Hours 07/17/23 07/18/23 07/19/23 23:59 23:59 23:59 Intake Total 1133.33 / 1133.33 Output Total 1600 / 1600 Balance -466.67 / -466.67 Lab / Micro Data 07/19/23 05:25 Labs: Laboratory Results - last 24 hr 07/19/23 05:25: WBC 7.8, RBC 3.19 L, Hgb 8.0 L, Hct 25.7 L, MCV 80.6 L, MCH 25.1 L, MCHC 31.1 L, RDW Std Deviation 48.2 H, RDW Coeff of Shanell 16.8 H, Plt Count 183, MPV 10.9, Immature Gran % (Auto) 0.500, Neut % (Auto) 53.3, Lymph % (Auto) 37.6, [place] % (Auto) 6.7, Eos % (Auto) 1.5, Baso % (Auto) 0.4, Absolute Neuts (auto) 4.2, Absolute Lymphs (auto) 2.93, Nucleated RBC % 0 Assessment & Plan (1) Lactating mother: (2) Vaginal delivery: PLAN: Plan 1) PPD #1 2) Routine care 3) d/c home
--- NOTE | 2023-07-19 10:43 | PCM.DC.SUM ---
Providers Date of Admission: 07/18/23 Date of Discharge: 07/19/23 Primary Care Physician: Marissa Primary Care Phys Reason For Visit: VAG Diagnosis Discharge Diagnosis (1) Vaginal delivery: Status: Acute Code(s): O80 - Encounter for full-term uncomplicated delivery (2) Lactating mother: Status: Acute Code(s): Z39.1 - Encounter for care and examination of lactating mother Plan 1) Admit to labor and delivery 2) Routine labs 3) GBS negative 4) Continuos EFM 5) Planning epidural for pain management 6) collaborative physician, notified of patient status and of above assessment and plan Medications at Discharge Home Medications prenat.vits,vandana,[id number] ( Vitamin tablet) 1 tab PO QDAY 04/20/17 promethazine 12.5 mg tablet 12.5 mg PO Q6H PRN nausea and vomiting #60 tabs 05/05/17 ibuprofen 600 mg tablet 600 mg PO 4X/DAY pain or cramping #30 tabs 11/26/17 Weight / BMI Weight Weight: 177 lb 0.499 oz Body Mass Index (BMI) 26.9 ABG / Lab / Microbiology Data 07/19/23 05:25 Laboratory: Laboratory Results - last 24 hr 07/19/23 05:25: WBC 7.8, RBC 3.19 L, Hgb 8.0 L, Hct 25.7 L, MCV 80.6 L, MCH 25.1 L, MCHC 31.1 L, RDW Std Deviation 48.2 H, RDW Coeff of Shanell 16.8 H, Plt Count 183, MPV 10.9, Immature Gran % (Auto) 0.500, Neut % (Auto) 53.3, Lymph % (Auto) 37.6, [place] % (Auto) 6.7, Eos % (Auto) 1.5, Baso % (Auto) 0.4, Absolute Neuts (auto) 4.2, Absolute Lymphs (auto) 2.93, Nucleated RBC % 0 D/C Instructions Discharge Diet: No restrictions Discharge Activity: Return to Normal Activity, May Drive, May Shower and May Take a Tub Bath May resume sexual activity in: 6 weeks Weight Bearing Status: Full weight bearing Lifting Restricted to (Lbs): 20 Call your doctor if your incision/area has: Continuous Slow Oozing, Sudden Increased Bleeding, Increased Pain/ Swelling, Increased Redness, Foul Smelling Discharge and Swelling at the incision site When: 2 week virtual and 6 week PP Meaningful Use Info Meaningful Use Diagnoses (Choose all that apply): None applicable Discharge Plan Admission Admit Date/Time: 07/18/23 00:42 Primary Reason for Your Visit: Attending Provider: Desirae Bates Primary Care Provider: Care Physician,No Primary Instructions Patient Instructions: After a Vaginal Additional Instructions / Restrictions: To follow up in the office in 2 weeks post . Discharge Orders/Prescriptions Prescriptions: No Action prenat.vits,vandana,[id number] [ Vitamin] tablet 1 tab PO QDAY promethazine 12.5 mg tablet 12.5 mg tablet 12.5 mg PO Q6H PRN (Reason: nausea and vomiting) Qty: 60 4RF Patient Comments: pt used this in early not currently using ibuprofen 600 MG tablet 600 mg PO 4X/DAY Qty: 30 1RF Referrals / Follow Up: Care Physician,No Primary [Primary Care Provider] - Disposition Disposition (needs filled in before D/C Order can be placed): Home, Self Care
== END 2023-07-19 11:10 | disposition home or self-care (01) | DRG 807 ==
LOC: WPOUT 00:43 → WP 00:43
PROVIDERS: Admitting Provider Advanced Practice Midwife; Referring Provider Advanced Practice Midwife; Visit Provider Advanced Practice Midwife
DX: O48.0 Post-term pregnancy (principal); Z37.0 Single live birth; O26.23 Pregnancy care for patient with recurrent pregnancy loss, third trimester; D64.9 Anemia, unspecified; O26.893 Other specified pregnancy related conditions, third trimester; O99.02 Anemia complicating childbirth; Z67.91 Unspecified blood type, Rh negative; Z3A.40 40 weeks gestation of pregnancy
CPT/HCPCS: 59025; 59050; 85025; 86780; 86850; 86870; 86900; 86901; 99221; J7120; G0378